=== PATIENT | female | born 1945 | race Caucasian/White ===

== ENCOUNTER 2019-07-07 19:49 | Emergency (ER) | payer MEDICARE, OTHER ==
[2019-07-07] MEDS ORDERED: SODIUM CHLORIDE 0.9% 1,000 ML IV STA ×2 (19:52)
[2019-07-07 19:54] LABS: Glucose,Whole Blood 178 mg/dL (75-99)
--- NOTE | 2019-07-07 19:59 | ED ---
Neuro HPI - General Stated Complaint: Stroke Symptoms Time Seen by Provider: 07/07/19 19:51 Source: RN notes reviewed, old records reviewed Limitations: altered mental status - History of Present Illness Is the patient presenting with stroke symptoms?: Yes Last Known Well Date: 07/07/19 Last Known Well Time: 19:30 -: hour(s) (1) Initial Comments: This is a 74-year-old female history of high blood pressure and diabetes coming in for evaluation of strokelike symptoms EMS called by family she does have significant right arm right leg deficit slurred speech per EMS arrival patient had significant neurological changes posted improvement rel and then returned upon arrival to ER with confusion right-sided deficits, slurred speech patient unable to give accurate history now she does find her speech and has some speech finding episodes Location: speech, dysarthria, right arm, right leg, altered Place: home Severity: moderate Quality: constant Improves With: none Worsens With: none Context: sudden onset Associated Symptoms: weakness Treatments Prior to Arrival: none - Related Data Allergies/Adverse Reactions: Allergies Allergy/AdvReac Type Severity Reaction Status Date / Time No Known Allergies Allergy Verified 07/07/19 20:11 Review of Systems ROS Statement: Those systems with pertinent positive or pertinent negative responses have been documented in the HPI. ROS Other: All systems not noted in ROS Statement are negative. General Exam - General Exam Comments Initial Comments: Significant right-sided deficits both weakness and sensation General appearance: alert, in no apparent distress Head exam: Present: atraumatic, normocephalic, normal inspection Eye exam: Present: normal appearance, PERRL, EOMI. Absent: scleral icterus, conjunctival injection, periorbital swelling ENT exam: Present: normal exam, mucous membranes moist Neck exam: Present: normal inspection. Absent: tenderness, meningismus, lymphadenopathy Respiratory exam: Present: normal lung sounds bilaterally. Absent: respiratory distress, wheezes, rales, rhonchi, stridor Cardiovascular Exam: Present: regular rate, normal rhythm, normal heart sounds. Absent: systolic murmur, diastolic murmur, rubs, gallop, clicks GI/Abdominal exam: Present: soft, normal bowel sounds. Absent: distended, tenderness, guarding, rebound, rigid Extremities exam: Present: normal inspection, full ROM, normal capillary refill. Absent: tenderness, pedal edema, joint swelling, calf tenderness Back exam: Present: normal inspection Neurological exam: Present: alert, oriented X3, CN II-XII intact Psychiatric exam: Present: normal affect, normal mood Skin exam: Present: warm, dry, intact, normal color. Absent: rash Stroke MDM - Lab Data Result diagrams: 07/07/19 20:04 07/07/19 20:04 Lab Results 07/07/19 07/07/19 07/07/19 Range/Units 19:52 20:04 20:04 WBC 11.1 H (3.8-10.6) k/uL RBC 4.17 (3.80-5.40) m/uL Hgb 12.6 (11.4-16.0) gm/dL Hct 37.6 (34.0-46.0) % MCV 90.2 (80.0-100.0) fL MCH 30.2 (25.0-35.0) pg MCHC 33.5 (31.0-37.0) g/dL RDW 12.4 (11.5-15.5) % Plt Count 261 (150-450) k/uL Neutrophils % 70 % Lymphocytes % 17 % Monocytes % 5 % Eosinophils % 3 % Basophils % 3 % Neutrophils # 7.8 H (1.3-7.7) k/uL Lymphocytes # 1.9 (1.0-4.8) k/uL Monocytes # 0.6 (0-1.0) k/uL Eosinophils # 0.4 (0-0.7) k/uL Basophils # 0.4 H (0-0.2) k/uL PT (9.0-12.0) sec INR (<1.2) APTT (22.0-30.0) sec Sodium 141 (137-145) mmol/L Potassium 4.8 (3.5-5.1) mmol/L Chloride 108 H (98-107) mmol/L Carbon Dioxide 26 (22-30) mmol/L Anion Gap 7 mmol/L BUN 41 H (7-17) mg/dL Creatinine 1.44 H (0.52-1.04) mg/dL Est GFR (CKD-EPI)AfAm 41 (>60 ml/min/1.73 sqM) Est GFR (CKD-EPI)NonAf 36 (>60 ml/min/1.73 sqM) Glucose 178 H (74-99) mg/dL POC Glucose (mg/dL) 178 H (75-99) mg/dL POC Glu [employer] ID Lakia Murdock Calcium 8.7 (8.4-10.2) mg/dL Total Bilirubin 1.2 (0.2-1.3) mg/dL AST 37 H (14-36) U/L ALT 30 (9-52) U/L Alkaline Phosphatase 62 (38-126) U/L Total Creatine Kinase (30-135) U/L Total Protein 6.7 (6.3-8.2) g/dL Albumin 3.6 (3.5-5.0) g/dL 07/07/19 07/07/19 Range/Units 20:04 20:04 WBC (3.8-10.6) k/uL RBC (3.80-5.40) m/uL Hgb (11.4-16.0) gm/dL Hct (34.0-46.0) % MCV (80.0-100.0) fL MCH (25.0-35.0) pg MCHC (31.0-37.0) g/dL RDW (11.5-15.5) % Plt Count (150-450) k/uL Neutrophils % % Lymphocytes % % Monocytes % % Eosinophils % % Basophils % % Neutrophils # (1.3-7.7) k/uL Lymphocytes # (1.0-4.8) k/uL Monocytes # (0-1.0) k/uL Eosinophils # (0-0.7) k/uL Basophils # (0-0.2) k/uL PT 9.8 (9.0-12.0) sec INR 0.9 (<1.2) APTT 25.9 (22.0-30.0) sec Sodium (137-145) mmol/L Potassium (3.5-5.1) mmol/L Chloride (98-107) mmol/L Carbon Dioxide (22-30) mmol/L Anion Gap mmol/L BUN (7-17) mg/dL Creatinine (0.52-1.04) mg/dL Est GFR (CKD-EPI)AfAm (>60 ml/min/1.73 sqM) Est GFR (CKD-EPI)NonAf (>60 ml/min/1.73 sqM) Glucose (74-99) mg/dL POC Glucose (mg/dL) (75-99) mg/dL POC Glu [employer] Operator ID Calcium (8.4-10.2) mg/dL Total Bilirubin (0.2-1.3) mg/dL AST (14-36) U/L ALT (9-52) U/L Alkaline Phosphatase (38-126) U/L Total Creatine Kinase 63 (30-135) U/L Total Protein (6.3-8.2) g/dL Albumin (3.5-5.0) g/dL - NIH Stroke Scale 1a. Level of Consciousness: (0) alert 1b. LOC Questions: (1) answers 1 question correctly 1c. LOC Commands: (1) performs 1 task correctly 2. Best Gaze: (0) normal 3. Visual: (0) no visual loss 4. Facial Palsy: (0) normal symmetrical movement 5a. Motor Arm Left: (0) no drift 5b. Motor Arm Right: (2) some gravity effort 6a. Motor Leg Left: (0) no drift 6b. Motor Leg Right: (2) some gravity effort 7. Limb Ataxia: (0) absent 8. Sensory: (1) mild/moderate sensory loss 9. Best Language: (1) mild/moderate aphasia 10. Dysarthria: (1) mild/moderate dysarthria 11. Extinction/Inattention: (0) no abnormality - Thrombolytic Inclusion/Exclusion Thrombolytic Inclusion Criteria: Symptom Onset < 4.5 h, NIH Stroke Scale Deficit (7) - Medical Decision Making 74 female to ER for evaluation will transfer [facility] for active CVA with embolus, patient given TPA here in the ER and will be transferred to [facility] - Radiology Data Radiology results: report reviewed (CT brain CTA had not does show left ICA occlusion), image reviewed - EKG Data -: EKG Interpreted by Me (EKG shows normal sinus rhythm rate of 65, PA 140, QRS 70, QTc 432) Course Vital Signs 07/07/19 07/07/19 19:52 20:10 Temperature 98.9 F Pulse Rate 71 66 Respiratory 18 18 Rate Blood Pressure 175/106 183/84 O2 Sat by Pulse 95 100 Oximetry - Reevaluation(s) Reevaluation #1: 07/07/19 20:29 Code stroke page outpatient arrival to ER decision made to give TPA in conjunction with patient as well as on-call neuro intervention 07/07/19 20:32 Patient is not on blood thinners Reevaluation #2: 07/07/19 20:30 Patient to be given TPA here in the ER 07/07/19 20:30 Patient given blood pressure control - Consultations Consultation #1: Spoke with Leila Moraes was agreeable to except transfer Critical Care Time Critical Care Time: Yes Total Critical Care Time: 31 Disposition Clinical Impression: Cerebrovascular accident (CVA) Disposition: OTHER INSTITUTION NOT DEFINED Condition: Critical Is patient prescribed a controlled substance at d/c from ED?: No Referrals: None,Stated [Primary Care Provider] - 1-2 days - Out of Hospital Transfer - Req. Specs Out of Hospital Transfer - Requested Specifics: Other Emergency Center ([facility])
[2019-07-07 20:11] VITALS: RESP 18
[2019-07-07 20:11] LABS: Basophils # (A) 0.4 k/uL (0-0.2); Basophils % (A) 3 %; Eosinophils # (A) 0.4 k/uL (0-0.7); Eosinophils % (A) 3 %; HCT 37.6 % (34.0-46.0); HGB 12.6 gm/dL (11.4-16.0); Lymphocytes # (A) 1.9 k/uL (1.0-4.8); Lymphocytes % (A) 17 %; MCH 30.2 pg (25.0-35.0); MCHC 33.5 g/dL (31.0-37.0); MCV 90.2 fL (80.0-100.0); Mean Platelet Volume 7.4; Monocytes # (A) 0.6 k/uL (0-1.0); Monocytes % (A) 5 %; Neutrophils # (A) 7.8 k/uL (1.3-7.7); Neutrophils % (A) 70 %; Platelet Count 261 k/uL (150-450); RBC 4.17 m/uL (3.80-5.40); RDW 12.4 % (11.5-15.5); WBC 11.1 k/uL (3.8-10.6)
--- NOTE | 2019-07-07 20:13 | CT ---
EXAMINATION TYPE: CT brain wo con for TPA DATE OF EXAM: 07/07/2019 COMPARISON: None HISTORY: Neuro deficit, acute, stroke suspected. CT DLP: 1102.8 mGycm Automated exposure control for dose reduction was used. FINDINGS: There is some cerebral cortical atrophy. There is no mass effect nor midline shift. There is no sign of intracranial hemorrhage. The calvarium is intact. There is some mucosal thickening in the left don e ethmoid sinus. IMPRESSION: CEREBRAL ATROPHY. NO ACUTE INTRACRANIAL ABNORMALITY. MILD ETHMOID SINUSITIS.
[2019-07-07] MEDS ORDERED: LABETALOL 5 MG/ML VIAL MDV IVP STA (20:19)
[2019-07-07 20:21] LABS: INR 0.9 (<1.2); Partial Thromboplastin Time 25.9 sec (22.0-30.0); Prothrombin Time 9.8 sec (9.0-12.0)
[2019-07-07] MEDS ORDERED: Alteplase PER PHARMACY Stroke 1 EACH MISC MISCELLANE PRN (20:23)
[2019-07-07 20:24] LABS: Albumin 3.6 g/dL (3.5-5.0); Calcium 8.7 mg/dL (8.4-10.2); Potassium 4.8 mmol/L (3.5-5.1); Total Bilirubin 1.2 mg/dL (0.2-1.3); Total Protein 6.7 g/dL (6.3-8.2)
[2019-07-07] MEDS ORDERED: ALTEPLASE 81 MG in EMPTY BAG 1 BAG IV STA (20:30)
[2019-07-07] MEDS ORDERED: ALTEPLASE BOLUS 9 MG in EMPTY SYRINGE 1 SYR IV STA (20:30)
[2019-07-07 20:35] LABS: Creatine Kinase MB 0.7 ng/mL (0.0-2.4); Troponin I 0.015 ng/mL (0.000-0.034)
--- NOTE | 2019-07-07 20:42 | CT ---
EXAMINATION TYPE: CT angio head neck DATE OF EXAM: 07/07/2019 HISTORY: Neuro deficit, acute, stroke suspected. COMPARISON: None CT DLP: 525.4 mGycm. Automated Exposure Control for Dose Reduction was Utilized. TECHNIQUE: CTA scan of the neck is performed with IV Contrast, patient injected with 65ml mL of Isov ue 370, axial images are obtained, coronal and sagittal reformatted images are reviewed. Three-D rashad nstructed images are created on an independent workstation and reviewed. FINDINGS: There is normal branching pattern of the great vessels on the aortic arch. There is no sign of aneury sm or dissection of the arch. There is bilateral arterial flow in the subclavian arteries. There is arterial flow in the right side common internal and external carotid artery. On the left side there is subtotal occlusion of the left distal common carotid artery. I see no flow within the left internal carotid artery. There is no flow in the petrous portion of the left internal carotid artery. There is arterial flow in both vertebral arteries. There is arterial flow in the vertebrobasilar beatriz ry system. I see no evidence of right-sided carotid artery stenosis. There is arterial flow in the anterior middle and posterior cerebral arteries. I see no evidence of i ntracranial aneurysm or neovascularity. The left anterior cerebral artery and left middle cerebral ar martin appears to fill through the anterior communicating artery. There is very small posterior communi cating arteries. I see no mass effect. There is no evidence of intracranial aneurysm or neovascularit y. There is normal contrast opacification of the venous sinuses. 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 There is no flow in the left internal carotid artery. There is left side intracranial arterial flow apparently mostly th rough the anterior communicating artery. No evidence of hemodynamic stenosis on the right side caroti d artery.
[2019-07-07 20:56] VITALS: BP 158/82; PULSE 66; TEMP 98.3
[2019-07-07] MEDS ORDERED: ONDANSETRON 4 MG/2 ML VIAL IVP STA (20:58)
[2019-07-07] MEDS ORDERED: SODIUM CHLORIDE 0.9% 50 ML MINI-BAG IV ONE (21:23)
== END 2019-07-07 21:09 | disposition short-term general hospital (02) ==
LOC: EC 19:49
DX: I63.40 Cerebral infarction due to embolism of unspecified cerebral artery (principal); R47.1 Dysarthria and anarthria; G81.91 Hemiplegia, unspecified affecting right dominant side; R29.707 NIHSS score 7
CPT/HCPCS: 36415; 93005; 80053; 82550; 82553; 84484; 85025; 85610; 85730; 70496; 70450; 70498; 99291; 37195; 96374; 96375; 96361 ×2; J2997; J2405; Q9967

== ENCOUNTER 2020-11-14 15:51 | Emergency (ER) | payer MEDICARE, OTHER ==
[2020-11-14 16:15] VITALS: RESP 18; TEMP 98.4
--- NOTE | 2020-11-14 17:49 | CT ---
EXAMINATION TYPE: CT brain sauline wo con DATE OF EXAM: 11/14/2020 COMPARISON: CT brain 07/07/2019 HISTORY: CT DLP: mGycm Automated exposure control for dose reduction was used. Images were obtained of the brain and cervical spine without contrast. There is cerebral cortical atrophy. There is no mass effect nor midline shift. There is no sign of in tracranial hemorrhage. There is 3 x 2 cm hypodensity in the urrutia-white matter left parietal lobe cons istent with an old infarct. There is 3 cm triangular-shaped area of hypodensity in the left posterior frontal lobe consistent with old infarct. The calvarium is intact. There is some mucosal thickening in the left posterior ethmoid sinus. The cervical vertebra have normal alignment. There is no compression fracture. There is anterior mode rate spurring at C4-5. There is posterior endplate spur formation and calcification of the posterior longitudinal ligament at C4 and C5 level. The facet joints are intact. There is no evidence of a frac ture. There is hypertrophic multilevel facet arthropathy. The skull base is intact. There is normal a eration of the mastoid sinuses. IMPRESSION: Cerebral atrophy. There are old infarcts in the left frontal lobe and left parietal lobe which appear new compared to the old CT scan of the brain. There is chronic left posterior ethmoid sinusitis without evidence of bone destruction in similar to old exam. Spondylotic changes in the mid and lower cervical spine without fracture.
[2020-11-14 17:55] VITALS: BP 162/72; PULSE 56
--- NOTE | 2020-11-14 17:55 | CT ---
EXAMINATION TYPE: CT facial bones wo con DATE OF EXAM: 11/14/2020 COMPARISON: None HISTORY: Fall injury x1 day ago CT DLP: 934.6 mGycm Automated exposure control for dose reduction was used. Images obtained from the bottom of the mandible to the top of the frontal sinuses with no contrast. The mandibular ring is intact. Temporomandibular joints are intact. Zygomatic arches appear normal. N loan bone is intact. The orbital margins are intact. The globes are symmetric. There is no evidence of retro-orbital mass. The maxilla is intact. There is 1.5 cm area of mucosal thickening left posterior ethmoid sinus consi stent with sinusitis. No expansion. No bone destruction. This appears unchanged compared to head CT s can 07/07/2019. There is left frontal scalp soft tissue swelling. IMPRESSION: Small left frontal scalp hematoma measures 4 mm in thickness. No fracture. Left side ethmoid chronic sinusitis.
--- NOTE | 2020-11-14 18:02 | XR ---
EXAMINATION TYPE: XR knee 4V RT DATE OF EXAM: 11/14/2020 COMPARISON: NONE HISTORY: Fall. Knee pain. TECHNIQUE: 4 views FINDINGS: There is moderate narrowing of the lateral joint space. There is spurring of the lateral fe moral and tibial condyles. I see no fracture nor dislocation. There is genu valgus deformity. There i s spurring at the patellofemoral joint. 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 No fracture seen.
--- NOTE | 2020-11-14 18:18 | ED ---
Fall HPI - General Chief Complaint: Fall Stated Complaint: Fall/head injury/blood thinners Time Seen by Provider: 11/14/20 16:51 Source: patient, family Mode of arrival: wheelchair - History of Present Illness Initial Comments: Patient is a 75-year-old female presenting to the emergency department after she fell yesterday. Patient states she lost her footing and fell forward landing mostly on her right knee but then hitting the left side of her forehead on the ground. She denies loss of consciousness. She states today she noticed increased bruising around her eyes and her nose as well as increased pain in her right knee. She states her daughter urged her to come to be evaluated. She does take eliquis secondary to a stroke. Denies any previous surgeries of her right knee. She denies any headaches, no blurry vision. She denies pain in any other of her extremities except the right knee. She has no further complaints at this time. Upon arrival to the ER, her vitals are stable. - Related Data Allergies Allergy/AdvReac Type Severity Reaction Status Date / Time No Known Allergies Allergy Verified 11/14/20 16:15 Review of Systems ROS Statement: Those systems with pertinent positive or pertinent negative responses have been documented in the HPI. ROS Other: All systems not noted in ROS Statement are negative. Past Medical History Past Medical History: Atrial Fibrillation, Heart Failure, CVA/TIA, Diabetes Mellitus, Hypertension History of Any Multi-Drug Resistant Organisms: None Reported Past Surgical History: Cholecystectomy Additional Past Surgical History / Comment(s): surgery to remove clot from leg and brain Past Psychological History: No Psychological Hx Reported Smoking Status: Former smoker Past Alcohol Use History: None Reported Past Drug Use History: None Reported General Exam - General Exam Comments Initial Comments: GENERAL: Patient is well-developed and well-nourished. Patient is nontoxic and in no acute distress. HEAD: Patient has small hematoma to the left forehead, there is some mild bruising present, no signs of basal skull fracture. EYES: Pupils equal round and reactive to light, extraocular movements intact, sclera anicteric, conjunctiva are normal. Eyelids were unremarkable. She does have some bruising noted underneath both of her eyes. ENT: TMs normal, nares patent, oropharynx clear without exudates. Moist mucous membranes. She has tenderness to palpation of the nasal bridge and bone, some mild bruising present NECK: Normal range of motion, supple without lymphadenopathy or JVD. LUNGS: Unlabored respirations. Breath sounds clear to auscultation bilaterally and equal. No wheezes rales or rhonchi. HEART: Regular rate and rhythm without murmurs, rubs or gallops. ABDOMEN: Soft, nontender, normoactive bowel sounds. No guarding, no rebound. No masses appreciated. : Deferred MUSCULOSKELETAL: Patient has bruising and pain present of the right anterior knee, she does have full active range of motion. She does have some mild swelling present. She is neurovascular intact. Rest of her extremities are within normal limits. No clubbing or cyanosis. NEUROLOGICAL: Patient is alert and oriented x 3. Motor and sensory are also intact. Cranial nerves II through XII grossly intact. Symmetrical smile. Normal speech, normal gait. PSYCH: Normal mood, normal affect. SKIN: Warm, Dry, normal turgor, no rashes or lesions noted. Limitations: physical limitation Course Vital Signs 11/14/20 11/14/20 16:08 17:51 Temperature 98.4 F Pulse Rate 58 L 56 L Respiratory 18 18 Rate Blood Pressure 185/73 162/72 O2 Sat by Pulse 98 95 Oximetry Medical Decision Making - Medical Decision Making Patient is a 75-year-old female with history of stroke, presenting after she fell yesterday hitting mostly her right knee and her left forehead. No loss of consciousness. She does take eliquis. X-rays show no fractures of the right knee. Computed tomography scan of the brain, C-spine, facial bones reveal no acute bleeding, no acute fractures, old infarcts. She does have a small hematoma left forehead. These findings with the patient. She may apply ice to her bruising and swelling especially to her hematoma on the forehead as well as the right knee. She can follow-up with her family doctor. Patient is stable for discharge. Patient is in agreement with this plan of care. Return parameters were discussed with the patient and they verbalized understanding. Case discussed with Dr. Benítez. Disposition Clinical Impression: Fall Disposition: HOME SELF-CARE Condition: Stable Instructions (If sedation given, give patient instructions): Contusion in Adults (ED) Additional Instructions: Please return to the Emergency Department if symptoms worsen or any other concerns. Apply ice to your bruising for pain and swelling. Recommend following up with your family doctor. Is patient prescribed a controlled substance at d/c from ED?: No Referrals: None,Stated [Primary Care Provider] - 1-2 days Time of Disposition: 18:28
== END 2020-11-14 18:42 | disposition home or self-care (01) ==
LOC: EC 15:51
DX: S09.90XA Unspecified injury of head, initial encounter (principal); I11.0 Hypertensive heart disease with heart failure; I50.9 Heart failure, unspecified; I48.91 Unspecified atrial fibrillation; Z86.73 Personal history of transient ischemic attack (TIA), and cerebral infarction without residual deficits; Z87.891 Personal history of nicotine dependence; W19.XXXA Unspecified fall, initial encounter
CPT/HCPCS: 70450; 70486; 72125; 99284

== ENCOUNTER 2021-07-13 09:07 | Emergency (ER) | payer MEDICARE, OTHER ==
[2021-07-13 09:14] VITALS: RESP 18
--- NOTE | 2021-07-13 09:34 | ED ---
General Adult HPI - General Chief complaint: Extremity Injury, Lower Stated complaint: Lt foot pain Time Seen by Provider: 07/13/21 09:16 Source: patient, family, RN notes reviewed Mode of arrival: wheelchair Limitations: no limitations - History of Present Illness Initial comments: Patient is a pleasant 76-year-old female presenting to the emergency Department with left foot discomfort. Onset of symptoms was close to week ago. Patient did have some dark discoloration that is improving. Patient now over the past day or so has redness on the dorsum of the foot. That is the area of tenderness. No fevers. Patient is ambulatory without difficulty. Discomfort does increase with touch. No history of similar symptoms previously. Discoloration was not the distal area, or the proximal second through fourth toes as well as somewhat of the proximal foot. - Related Data Home Medications Medication Instructions Recorded Confirmed Apixaban [Eliquis] 5 mg PO BID 07/13/21 07/13/21 Aspirin EC [Ecotrin Low Dose] 81 mg PO HS 07/13/21 07/13/21 Calcium Carbonate [Calcium] 600 mg PO DAILY 07/13/21 07/13/21 Cholecalciferol [Vitamin D3 (25 25 mcg PO BID 07/13/21 07/13/21 Mcg = 1000 Iu)] Furosemide [Lasix] 20 mg PO DAILY@1400 07/13/21 07/13/21 Furosemide [Lasix] 40 mg PO DAILY 07/13/21 07/13/21 Grape Seed Extract 1 tab PO HS 07/13/21 07/13/21 Insulin Aspart [NovoLOG Flexpen] See Protocol SQ ACHS 07/13/21 07/13/21 Insulin Detemir [Levemir Flextouch 24 units SQ HS 07/13/21 07/13/21 Pen] Losartan [Cozaar] 50 mg PO HS 07/13/21 07/13/21 Magnesium Oxide [Mag-Ox] 400 mg PO DAILY 07/13/21 07/13/21 Metoprolol Tartrate [Lopressor] 100 mg PO BID 07/13/21 07/13/21 Multivit-Min/Iron/Folic/Lutein 1 tab PO DAILY 07/13/21 07/13/21 [Centrum Silver Women Tablet] [place]-3 Fatty Acids [[place]-3] 1,000 mg PO DAILY 07/13/21 07/13/21 Pantoprazole [Protonix] 40 mg PO DAILY 07/13/21 07/13/21 Potassium Chloride ER [K-Dur 10] 10 meq PO DAILY 07/13/21 07/13/21 Pravastatin Sodium [Pravachol] 80 mg PO HS 07/13/21 07/13/21 Vitamin B Complex 1 cap PO DAILY 07/13/21 07/13/21 Vits A,C,E/Lutein/Minerals 1 tab PO DAILY 07/13/21 07/13/21 [Ocuvite with Lutein Tablet] Previous Rx's Medication Instructions Recorded Clindamycin HCl 300 mg PO Q8H #30 cap 07/13/21 Allergies Allergy/AdvReac Type Severity Reaction Status Date / Time Penicillins Allergy Rash/Hives Verified 07/13/21 10:12 Review of Systems ROS Statement: Those systems with pertinent positive or pertinent negative responses have been documented in the HPI. ROS Other: All systems not noted in ROS Statement are negative. Constitutional: Denies: fever Eyes: Denies: eye pain ENT: Denies: ear pain Respiratory: Denies: cough Cardiovascular: Denies: chest pain Endocrine: Denies: fatigue Gastrointestinal: Denies: abdominal pain Genitourinary: Denies: dysuria Musculoskeletal: Denies: back pain Skin: Reports: as per HPI Neurological: Denies: headache Past Medical History Past Medical History: Atrial Fibrillation, Heart Failure, CVA/TIA, Diabetes Mellitus, Hypertension History of Any Multi-Drug Resistant Organisms: None Reported Past Surgical History: Cholecystectomy Additional Past Surgical History / Comment(s): surgery to remove clot from leg and brain Past Psychological History: No Psychological Hx Reported Smoking Status: Former smoker Past Alcohol Use History: None Reported Past Drug Use History: None Reported General Exam Limitations: no limitations General appearance: alert, in no apparent distress Head exam: Present: normocephalic Eye exam: Present: normal appearance Neck exam: Present: normal inspection Respiratory exam: Present: normal lung sounds bilaterally Cardiovascular Exam: Present: regular rate, normal rhythm Expanded Peripheral pulses: 2+: Posterior Tibialis (R), Posterior Tibialis (L), Dorsalis Pedis (R), Dorsalis Pedis (L) GI/Abdominal exam: Present: soft. Absent: tenderness Extremities exam: Present: other (Left foot with mild swelling. Dorsum with erythema and tenderness. There is mild ecchymosis proximal second through fourth toes as well as proximal foot/ankle region.) Back exam: Present: normal inspection Neurological exam: Present: alert. Absent: motor sensory deficit Psychiatric exam: Present: normal affect, normal mood Skin exam: Present: erythema Course Vital Signs 07/13/21 09:09 Temperature 97.7 F Pulse Rate 109 H Respiratory 18 Rate Blood Pressure 115/43 O2 Sat by Pulse 97 Oximetry Medical Decision Making - Medical Decision Making Patient reevaluated. Patient and family updated - Radiology Data Radiology results: report reviewed (Ultrasound negative for DVT), image reviewed (Foot and (Ankle x-ray shows no acute process) Disposition Clinical Impression: Cellulitis of left foot Disposition: HOME SELF-CARE Condition: Stable Instructions (If sedation given, give patient instructions): Cellulitis (ED) Additional Instructions: Please do follow-up with primary care physician in the next couple days for recheck. Return for increased pain, fever, swelling, color change, worsening or changing symptoms or any other concerns. Prescription has been sent to pharmacy Prescriptions: Clindamycin HCl 300 mg PO Q8H #30 cap Is patient prescribed a controlled substance at d/c from ED?: No Referrals: Chandler Gleason MD [Primary Care Provider] - 1-2 days Sagar Zhang MD [Family Provider] - 1-2 days Time of Disposition: 11:06
--- NOTE | 2021-07-13 09:59 | US ---
EXAMINATION TYPE: US venous doppler duplex LE LT DATE OF EXAM: 07/13/2021 9:54 AM COMPARISON: NONE CLINICAL HISTORY: pain, swelling. SIDE PERFORMED: Left TECHNIQUE: The lower extremity deep venous system is examined utilizing real time linear array sonog keyonna with graded compression, doppler sonography and color-flow sonography. VESSELS IMAGED: Common Femoral Vein Deep Femoral Vein Greater Saphenous Vein * Femoral Vein Popliteal Vein Small Saphenous Vein * Proximal Calf Veins (* superficial vessels) Left Leg: Negative for DVT Grayscale, color doppler, spectral doppler imaging performed of the deep veins of the left lower extr emity. There is normal flow, compressibility, vascular waveforms. IMPRESSION: No ultrasound evidence for acute DVT in the left lower extremity.
--- NOTE | 2021-07-13 10:31 | XR ---
EXAMINATION TYPE: XR ankle complete LT, XR foot complete LT DATE OF EXAM: 07/13/2021 CLINICAL HISTORY: Pain and swelling. TECHNIQUE: Frontal, lateral and oblique images of the left ankle and foot are obtained. COMPARISON: None. FINDINGS: [place] osseous structures are demineralized. Mild to moderate diffuse soft tissue swelling greatest over the lateral malleolus. There is no acute fracture/dislocation evident in the left ankl e. The ankle mortise appears within normal limits. Large superior and inferior calcaneal spurs.Poste rior arterial vascular calcification. There is no acute fracture or dislocation evident in the left foot. Moderate midfoot spurring. Marke d flexion in the second through fifth toes are hammertoe type deformity. Mild to moderate narrowing a nd spurring first metatarsophalangeal joint. Overlying soft tissue is unremarkable. IMPRESSION: As above.
[2021-07-13] MEDS ORDERED: CLINDAMYCIN 150 MG CAP PO STA (11:08)
[2021-07-13 11:31] VITALS: BP 124/78; PULSE 80; TEMP 98
== END 2021-07-13 11:31 | disposition home or self-care (01) ==
LOC: EC 09:07
DX: L03.116 Cellulitis of left lower limb (principal); I11.0 Hypertensive heart disease with heart failure; I50.9 Heart failure, unspecified; E11.9 Type 2 diabetes mellitus without complications; I48.91 Unspecified atrial fibrillation; Z79.01 Long term (current) use of anticoagulants; Z79.82 Long term (current) use of aspirin; Z79.4 Long term (current) use of insulin; Z88.0 Allergy status to penicillin; Z86.73 Personal history of transient ischemic attack (TIA), and cerebral infarction without residual deficits; Z90.49 Acquired absence of other specified parts of digestive tract; Z87.891 Personal history of nicotine dependence
CPT/HCPCS: 99284

== ENCOUNTER 2023-04-26 05:57 | Emergency (ER) | payer MEDICARE, OTHER ==
[2023-04-26 06:09] VITALS: PULSE 96; RESP 20; TEMP 97.8
--- NOTE | 2023-04-26 06:22 | ED ---
General Adult HPI - General Chief complaint: Vaginal Bleeding Stated complaint: Blood in toilet Time Seen by Provider: 04/26/23 06:13 Source: family, RN notes reviewed Mode of arrival: wheelchair Limitations: no limitations - History of Present Illness Initial comments: 78-year-old female with past medical history significant for CVA and hypertension presents emergency department with a chief complaint of vaginal bleeding. Patient reports that she is postmenopausal last menstrual period approximately 30 years ago. She reports intermittent light vaginal bleeding for the last 3 days. She does report passing small clots. She denies dizziness, lightheadedness, shortness of breath, fatigue. She is on Eliquis for anticoagulation. - Related Data Home Medications Medication Instructions Recorded Confirmed Apixaban [Eliquis] 5 mg PO BID 07/13/21 07/13/21 Aspirin EC [Ecotrin Low Dose] 81 mg PO HS 07/13/21 07/13/21 Calcium Carbonate [Calcium] 600 mg PO DAILY 07/13/21 07/13/21 Cholecalciferol [Vitamin D3 (25 25 mcg PO BID 07/13/21 07/13/21 Mcg = 1000 Iu)] Furosemide [Lasix] 20 mg PO DAILY@1400 07/13/21 07/13/21 Furosemide [Lasix] 40 mg PO DAILY 07/13/21 07/13/21 Grape Seed Extract 1 tab PO HS 07/13/21 07/13/21 Insulin Aspart [NovoLOG Flexpen] See Protocol SQ ACHS 07/13/21 07/13/21 Insulin Detemir [Levemir Flextouch 24 units SQ HS 07/13/21 07/13/21 Pen] Losartan [Cozaar] 50 mg PO HS 07/13/21 07/13/21 Magnesium Oxide [Mag-Ox] 400 mg PO DAILY 07/13/21 07/13/21 Metoprolol Tartrate [Lopressor] 100 mg PO BID 07/13/21 07/13/21 Multivit-Min/Iron/Folic/Lutein 1 tab PO DAILY 07/13/21 07/13/21 [Centrum Silver Women Tablet] [place]-3 Fatty Acids [[place]-3] 1,000 mg PO DAILY 07/13/21 07/13/21 Pantoprazole [Protonix] 40 mg PO DAILY 07/13/21 07/13/21 Potassium Chloride ER [K-Dur 10] 10 meq PO DAILY 07/13/21 07/13/21 Pravastatin Sodium [Pravachol] 80 mg PO HS 07/13/21 07/13/21 Vitamin B Complex 1 cap PO DAILY 07/13/21 07/13/21 Vits A,C,E/Lutein/Minerals 1 tab PO DAILY 07/13/21 07/13/21 [Ocuvite with Lutein Tablet] Previous Rx's Medication Instructions Recorded clindamycin HCL [Clindamycin HCl] 300 mg PO Q8H #30 cap 07/13/21 Cephalexin [Keflex] 500 mg PO BID #14 cap 04/26/23 Allergies Allergy/AdvReac Type Severity Reaction Status Date / Time irbesartan Allergy Rash/Hives Verified 04/26/23 06:13 Penicillins Allergy Rash/Hives Verified 04/26/23 06:08 [id number]-[id number]-[id number] Reductase Allergy Rash/Hives Verified 04/26/23 06:13 Inhibitor sulfamethoxazole Allergy Rash/Hives Verified 04/26/23 06:13 [From Bactrim] trimethoprim [From Bactrim] Allergy Rash/Hives Verified 04/26/23 06:13 Review of Systems ROS Statement: Those systems with pertinent positive or pertinent negative responses have been documented in the HPI. ROS Other: All systems not noted in ROS Statement are negative. Past Medical History Past Medical History: Atrial Fibrillation, Heart Failure, CVA/TIA, Diabetes Mellitus, Hypertension Additional Past Medical History / Comment(s): Kidney failure History of Any Multi-Drug Resistant Organisms: None Reported Past Surgical History: Cholecystectomy Additional Past Surgical History / Comment(s): surgery to remove clot from leg and brain Past Psychological History: No Psychological Hx Reported Smoking Status: Second hand smoke exposure Past Alcohol Use History: None Reported Past Drug Use History: None Reported General Exam - General Exam Comments Initial Comments: General: Alert, in no acute distress Head: atraumatic normocephalic. Eyes PERRL, EOMI intact, mucous membranes moist Respiratory: Lungs clear to auscultation bilaterally Cardiovascular: Heart rate regular rate and rhythm Abdominal: Soft without guarding or rebound Extremities: Normal inspection with full range of motion and normal capillary refill Neuroogic: alert and oriented 3, CN II-XII intact, able to ambulate with steady gait Skin: warm dry and intact with normal color : external exam is without any rashes, lesions, erythema. Vaginal canal without blood. Cervical os is visualized and is closed. There is no cervical motion tenderness for abnormal adnexal tenderness. Pelvic exam performed with Aneta giles RN present. Limitations: no limitations Course Vital Signs 04/26/23 04/26/23 06:05 10:32 Temperature 97.8 F 97.8 F Pulse Rate 96 96 Respiratory 20 20 Rate Blood Pressure 140/86 120/90 O2 Sat by Pulse 99 99 Oximetry Medical Decision Making - Medical Decision Making Was pt. sent in by a medical professional or institution (, WOODY, MANAGER OF REGULATORY AFFAIRS, urgent care, hospital, or usp...) When possible be specific @ -[No] Did you speak to anyone other than the patient for history (EMS, parent, family, police, friend...)? What history was obtained from this source @ -Patients Daughter Did you review nursing and triage notes (agree or disagree)? Why? @ -[I reviewed and agree with nursing and triage notes] Were old charts reviewed (outside hosp., previous admission, EMS record, old EKG, old radiological studies, urgent care reports/EKG's, usp records)? Report findings @ -[No old charts were reviewed] Differential Diagnosis (chest pain, altered mental status, abdominal pain women, abdominal pain men, vaginal bleeding, weakness, fever, dyspnea, syncope, headache, dizziness, GI bleed, back pain, seizure, CVA, palpatations, mental health, musculoskeletal)? @ -[not applicable] EKG interpreted by me (3pts min.). @ -[As above] X-rays interpreted by me (1pt min.). @ -[None done] CT interpreted by me (1pt min.). @ -[None done] U/S interpreted by me (1pt. min.). @ -Ultrasound pelvis does not reveal any gross abnormality What testing was considered but not performed or refused? (CT, X-rays, U/S, labs)? Why? @ -[None] What meds were considered but not given or refused? Why? @ -[None] Did you discuss the management of the patient with other professionals (professionals i.e. WOODY Gan, MANAGER OF REGULATORY AFFAIRS, lab, RT, psych nurse, social sciences lecturer, clinical reimbursement specialist, teacher, toxics program officer, mental health case manager)? Give summary @ -[No] Was smoking cessation discussed for >3mins.? @ -[No] Was critical care preformed (if so, how long)? @ -[No] Were there social determinants of health that impacted care today? How? (Homelessness, low income, unemployed, alcoholism, drug addiction, transportation, low edu. Level, literacy, decrease access to med. care, fci, rehab)? @ -[No] Was there de-escalation of care discussed even if they declined (Discuss DNR or withdrawal of care, Hospice)? DNR status @ -[No] What co-morbidities impacted this encounter? (DM, HTN, Smoking, COPD, CAD, Cancer, CVA, ARF, Chemo, Hep., AIDS, mental health diagnosis, sleep apnea, morbid obesity)? @ -[None] Was patient admitted / discharged? Hospital course, mention meds given and route, prescriptions, significant lab abnormalities, going to OR and other pertinent info. @ -78-year-old female with no significant past medical history presents the emergency department with vaginal bleeding.. Patient is a thorough history and physical exam performed. Vital signs stable. Heart rate regular rate and rhythm. exam does not reveal any blood in the vaginal vault. Cervical os closed. Patient had lab work obtained which was unremarkable. Urinalysis reveals Large amount of blood, positive nitrates, large leukocyte Estrace, 157 WBCs. Urine Culture pending. Discussed the results in detail with the patient and the patient's family member who verbalized understanding all questions were addressed. She'll provided prescription for Keflex. Recommend close follow-up with her PCP in 3-5 days. Case discussed with FIDEL Mosquera who agrees with plan Undiagnosed new problem with uncertain prognosis? @ -[No] Drug Therapy requiring intensive monitoring for toxicity (Heparin, Nitro, Insulin, Cardizem)? @ -[No] Were any procedures done? @ -[No] Diagnosis/symptom? @ -Vaginal Bleeding - Urinary Tract Infection Acute, or Chronic, or Acute on Chronic? @ -Acute Uncomplicated (without systemic symptoms) or Complicated (systemic symptoms)? @ -Uncomplicated Side effects of treatment? @ -[No] Exacerbation, Progression, or Severe Exacerbation? @ -[No] Poses a threat to life or bodily function? How? (Chest pain, [place], [place], pneumonia, PE, COPD, DKA, ARF, appy, cholecystitis, CVA, Diverticulitis, Homicidal, Suicidal, threat to staff... and all critical care pts) @ -Low likelihood - Lab Data Result diagrams: 04/26/23 06:15 04/26/23 06:15 Lab Results 04/26/23 04/26/23 04/26/23 Range/Units 06:15 06:15 06:15 WBC 9.6 (3.8-10.6) k/uL RBC 4.59 (3.80-5.40) m/uL Hgb 13.8 (11.4-16.0) gm/dL Hct 43.0 (34.0-46.0) % MCV 93.8 (80.0-100.0) fL MCH 30.2 (25.0-35.0) pg MCHC 32.2 (31.0-37.0) g/dL RDW 13.2 (11.5-15.5) % Plt Count 268 (150-450) k/uL MPV 8.6 Neutrophils % 67 % Lymphocytes % 20 % Monocytes % 7 % Eosinophils % 3 % Basophils % 0 % Neutrophils # 6.4 (1.3-7.7) k/uL Lymphocytes # 2.0 (1.0-4.8) k/uL Monocytes # 0.7 (0-1.0) k/uL Eosinophils # 0.3 (0-0.7) k/uL Basophils # 0.0 (0-0.2) k/uL PT (9.0-12.0) sec INR (<1.2) APTT (22.0-30.0) sec Sodium 142 (137-145) mmol/L Potassium 4.2 (3.5-5.1) mmol/L Chloride 105 (98-107) mmol/L Carbon Dioxide 33 H (22-30) mmol/L Anion Gap 4 mmol/L BUN 39 H (7-17) mg/dL Creatinine 1.61 H (0.52-1.04) mg/dL Est GFR (CKD-EPI)AfAm 35 (>60 ml/min/1.73 sqM) Est GFR (CKD-EPI)NonAf 30 (>60 ml/min/1.73 sqM) Glucose 113 H (74-99) mg/dL Calcium 9.2 (8.4-10.2) mg/dL Total Bilirubin 1.2 (0.2-1.3) mg/dL AST 31 (14-36) U/L ALT 22 (4-34) U/L Alkaline Phosphatase 86 (38-126) U/L Total Protein 7.2 (6.3-8.2) g/dL Albumin 3.9 (3.5-5.0) g/dL Urine Color Urine Appearance (Clear) Urine pH (5.0-8.0) Ur Specific [place] (1.001-1.035) Urine Protein (Negative) Urine Glucose (UA) (Negative) Urine Ketones (Negative) Urine Blood (Negative) Urine Nitrite (Negative) Urine Bilirubin (Negative) Urine Urobilinogen (<2.0) mg/dL Ur Leukocyte Esterase (Negative) Urine RBC (0-5) /hpf Urine WBC (0-5) /hpf Ur Squamous Epith Cells (0-4) /hpf Urine Bacteria (None) /hpf Urine Mucus (None) /hpf Blood Type A Positive Blood Type Confirm Blood Type Recheck No Previous Record Bld Type Recheck Status CABO Indicated Antibody Screen NEGATIVE Spec Expiration Date 04/29/2023231404/26/23 04/26/23 04/26/23 Range/Units 06:20 09:00 09:10 WBC (3.8-10.6) k/uL RBC (3.80-5.40) m/uL Hgb (11.4-16.0) gm/dL Hct (34.0-46.0) % MCV (80.0-100.0) fL MCH (25.0-35.0) pg MCHC (31.0-37.0) g/dL RDW (11.5-15.5) % Plt Count (150-450) k/uL MPV Neutrophils % % Lymphocytes % % Monocytes % % Eosinophils % % Basophils % % Neutrophils # (1.3-7.7) k/uL Lymphocytes # (1.0-4.8) k/uL Monocytes # (0-1.0) k/uL Eosinophils # (0-0.7) k/uL Basophils # (0-0.2) k/uL PT 11.0 (9.0-12.0) sec INR 1.1 (<1.2) APTT 26.9 (22.0-30.0) sec Sodium (137-145) mmol/L Potassium (3.5-5.1) mmol/L Chloride (98-107) mmol/L Carbon Dioxide (22-30) mmol/L Anion Gap mmol/L BUN (7-17) mg/dL Creatinine (0.52-1.04) mg/dL Est GFR (CKD-EPI)AfAm (>60 ml/min/1.73 sqM) Est GFR (CKD-EPI)NonAf (>60 ml/min/1.73 sqM) Glucose (74-99) mg/dL Calcium (8.4-10.2) mg/dL Total Bilirubin (0.2-1.3) mg/dL AST (14-36) U/L ALT (4-34) U/L Alkaline Phosphatase (38-126) U/L Total Protein (6.3-8.2) g/dL Albumin (3.5-5.0) g/dL Urine Color Yellow Urine Appearance Cloudy H (Clear) Urine pH 5.5 (5.0-8.0) Ur Specific [place] 1.017 (1.001-1.035) Urine Protein 1+ H (Negative) Urine Glucose (UA) Negative (Negative) Urine Ketones Negative (Negative) Urine Blood Large H (Negative) Urine Nitrite Positive H (Negative) Urine Bilirubin Negative (Negative) Urine Urobilinogen <2.0 (<2.0) mg/dL Ur Leukocyte Esterase Large H (Negative) Urine RBC 23 H (0-5) /hpf Urine WBC 157 H (0-5) /hpf Ur Squamous Epith Cells 4 (0-4) /hpf Urine Bacteria Many H (None) /hpf Urine Mucus Rare H (None) /hpf Blood Type Blood Type Confirm A Positive Blood Type Recheck Bld Type Recheck Status Antibody Screen Spec Expiration Date Disposition Clinical Impression: Vaginal bleeding, Urinary tract infection Disposition: HOME SELF-CARE Condition: Stable Instructions (If sedation given, give patient instructions): Urinary Tract Infection in Women (ED) Additional Instructions: [place] return to the nearest emergency department if worsening vaginal bleeding Please return if dizziness, lightheadedness, worsening fatigue develop Follow up with [facility] Prescriptions: Cephalexin [Keflex] 500 mg PO BID #14 cap Is patient prescribed a controlled substance at d/c from ED?: No Referrals: Chandler Gleason MD [Primary Care Provider] - 1-2 days More Araujo MD [STAFF PHYSICIAN] - 1-2 days Sonam Davila DO [Doctor of Osteopathic Medicine] - 1-2 days Salome Flores DO [Doctor of Osteopathic Medicine] - 1-2 days Forms: Area PCPs Time of Disposition: 09:24
[2023-04-26 06:40] LABS: Basophils % (A) 0 %; Eosinophils # (A) 0.3 k/uL (0-0.7); Eosinophils % (A) 3 %; HGB 13.8 gm/dL (11.4-16.0); Lymphocytes % (A) 20 %; MCH 30.2 pg (25.0-35.0); MCHC 32.2 g/dL (31.0-37.0); MCV 93.8 fL (80.0-100.0); Mean Platelet Volume 8.6; Monocytes # (A) 0.7 k/uL (0-1.0); Monocytes % (A) 7 %; Neutrophils # (A) 6.4 k/uL (1.3-7.7); Neutrophils % (A) 67 %; Platelet Count 268 k/uL (150-450); RBC 4.59 m/uL (3.80-5.40); RDW 13.2 % (11.5-15.5); WBC 9.6 k/uL (3.8-10.6)
[2023-04-26 06:48] LABS: ALT 22 U/L (4-34); AST 31 U/L (14-36); African American GFR (CKD) 35 (>60 ml/min/1.73 sqM); Albumin 3.9 g/dL (3.5-5.0); Alkaline Phosphatase 86 U/L (38-126); Anion Gap 4 mmol/L; Blood Urea Nitrogen 39 mg/dL (7-17); Calcium 9.2 mg/dL (8.4-10.2); Carbon Dioxide 33 mmol/L (22-30); Chloride 105 mmol/L (98-107); Glucose 113 mg/dL (74-99); Non-African American GFR(CKD) 30 (>60 ml/min/1.73 sqM); Potassium 4.2 mmol/L (3.5-5.1); Sodium 142 mmol/L (137-145); Total Bilirubin 1.2 mg/dL (0.2-1.3); Total Protein 7.2 g/dL (6.3-8.2)
[2023-04-26] MEDS ORDERED: SODIUM CHLORIDE 0.9% 1,000 ML IV STA (07:28)
--- NOTE | 2023-04-26 08:00 | US ---
EXAMINATION TYPE: US pelvis complete transvag DATE OF EXAM: 04/26/2023 COMPARISON: NONE CLINICAL INDICATION: Female, 78 years old with history of post menopausal bleeding; TECHNIQUE: Transvaginal (TV) and Transabdominal (TA) . Transabdominal sonographic images of the pel vis were acquired. Transvaginal sonographic images were medically necessary to better assess the fol lowing anatomy: Date of LMP: postmenopausal, no HRT. EXAM MEASUREMENTS: Uterus: 7.8 x 4.6 x 4.4 cm Endometrial Stripe: 0.3 cm Right Ovary: not identified Left Ovary: not identified 1. Uterus: Anteverted wnl 2. Endometrium: wnl 3. Right Ovary: not identified 4. Left Ovary: not identified 5. Bilateral Adnexa: wnl 6. Posterior cul-de-sac: wnl IMPRESSION: 1. Pelvic ultrasound as visualized. 2. There is limitation of visualization of the ovaries.
[2023-04-26 09:23] LABS: Appearance,Urine Cloudy (Clear); Bacteria,Urine Many /hpf; Bilirubin,Urine Negative (Negative); Blood,Urine Large (Negative); Color,Urine Yellow; Glucose,Urine (UA) Negative (Negative); Ketones,Urine Negative (Negative); Leukocyte Esterase,Urine Large (Negative); Mucus,Urine Rare /hpf; Nitrite,Urine Positive (Negative); PH, Urine 5.5 (5.0-8.0); Protein,Urine 1+ (Negative); RBC,Urine 23 /hpf (0-5); Specific Gravity,Urine 1.017 (1.001-1.035); Squamous Epithelial Cell,Urine 4 /hpf (0-4); Urobilinogen,Urine <2.0 mg/dL (<2.0); WBC,Urine 157 /hpf (0-5)
[2023-04-26 09:26] LABS: INR 1.1 (<1.2); Partial Thromboplastin Time 26.9 sec (22.0-30.0)
[2023-04-26 10:33] VITALS: BP 120/90
== END 2023-04-26 10:33 | disposition home or self-care (01) ==
LOC: EC 05:57
DX: N39.0 Urinary tract infection, site not specified (principal); N93.9 Abnormal uterine and vaginal bleeding, unspecified; I48.91 Unspecified atrial fibrillation; I11.0 Hypertensive heart disease with heart failure; I50.9 Heart failure, unspecified; E11.9 Type 2 diabetes mellitus without complications; Z86.73 Personal history of transient ischemic attack (TIA), and cerebral infarction without residual deficits; Z79.899 Other long term (current) drug therapy; Z79.01 Long term (current) use of anticoagulants; Z77.22 Contact with and (suspected) exposure to environmental tobacco smoke (acute) (chronic); Z88.0 Allergy status to penicillin; Z88.2 Allergy status to sulfonamides; Z88.6 Allergy status to analgesic agent; Z88.1 Allergy status to other antibiotic agents; Z88.8 Allergy status to other drugs, medicaments and biological substances
CPT/HCPCS: 36415; 76830; 76856; 80053; 81001; 85025; 85610; 85730; 86850; 86900; 86901; 87077; 87086; 87186; 96360; 99284

== ENCOUNTER 2024-07-03 10:24 | Emergency (ER) | payer MEDICARE, OTHER ==
[2024-07-03 11:01] LABS: Glucose,Whole Blood 184 mg/dL (70-110)
--- NOTE | 2024-07-03 11:50 | XR ---
EXAMINATION TYPE: XR humerus RT DATE OF EXAM: 07/03/2024 11:44 AM COMPARISON: None. CLINICAL INDICATION: Female, 79 years old with history of pain, TECHNIQUE: 2 view(s) obtained. FINDINGS: Right humerus is examined in 2 views. Humeral head articulates glenoid. The elbow joint space appears intact. No acute fractures or dislocations evident. Follow up exams can be performed 7-10 days from acute trauma for continued pain. IMPRESSION: 1. No acute osseous abnormality right [facility], , 07/03/2024 11:47 AM
--- NOTE | 2024-07-03 11:52 | XR ---
EXAMINATION TYPE: XR knee complete RT DATE OF EXAM: 07/03/2024 11:44 AM COMPARISON: 11/14/2020 CLINICAL INDICATION: Female, 79 years old with history of pain, soreness TECHNIQUE: 3 view(s) obtained. FINDINGS: There is loss of lateral compartment joint space. Mild narrowing of medial compartment joint space pr esent. Lateral tibial plateau spurring is present. No joint effusion is evident. Patellofemoral joint space narrowing is present. Anterior patellar spurring is present superiorly and inferiorly. Vascula r calcifications present. IMPRESSION: 1. 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 2. Mild degenerative changes medial compartment and moderate degenerative changes patellofemoral join t space. [facility], , 07/03/2024 11:50 AM
--- NOTE | 2024-07-03 12:47 | US ---
EXAMINATION TYPE: US extremity nonvasc mass RT DATE OF EXAM: 07/03/2024 COMPARISON: NONE CLINICAL INDICATION: Female, 79 years old with history of pain; Pain when wiping yesterday - lump for m not long after pain TECHNIQUE: FINDINGS: Muscle tear vs detachment from ligament Unable to find bicep tendon ending. Rounded upper end of bicep muscle seen 10.5 cm from humeral head and about 4.5 cm from potential anat p tendon end IMPRESSION: Findings compatible with tendon rupture and retraction biceps muscle. MRI can further ev aluate tendon location [facility], , 07/03/2024 12:44 PM
--- NOTE | 2024-07-03 12:51 | ED ---
General Adult HPI - General Chief complaint: Extremity Injury, Upper Stated complaint: Right arm injury Time Seen by Provider: 07/03/24 10:38 Source: patient, RN notes reviewed Mode of arrival: wheelchair Limitations: no limitations - History of Present Illness Initial comments: 79-year-old female presents to the emergency department for evaluation of right arm pain. Patient states that she was on the toilet and attempted to wipe when she felt tightness in her right arm. She said since then she has noticed a "mass "in her right upper arm. She notes sharp pain in the region of this. She also notes some decreased strength in her right arm. She is able to move it without limitation. Patient also complaining of pain in her right knee. She denies recent fever, chills. She is on blood thinners. - Related Data Home Medications Medication Instructions Recorded Confirmed Apixaban [Eliquis] 5 mg PO BID 07/13/21 07/13/21 Aspirin EC [Ecotrin Low Dose] 81 mg PO HS 07/13/21 07/13/21 Calcium Carbonate [Calcium] 600 mg PO DAILY 07/13/21 07/13/21 Cholecalciferol [Vitamin D3 (25 25 mcg PO BID 07/13/21 07/13/21 Mcg = 1000 Iu)] Furosemide [Lasix] 20 mg PO DAILY@1400 07/13/21 07/13/21 Furosemide [Lasix] 40 mg PO DAILY 07/13/21 07/13/21 Grape Seed Extract 1 tab PO HS 07/13/21 07/13/21 Insulin Aspart [NovoLOG Flexpen] See Protocol SQ ACHS 07/13/21 07/13/21 Insulin Detemir [Levemir Flextouch 24 units SQ HS 07/13/21 07/13/21 Pen] Losartan [Cozaar] 50 mg PO HS 07/13/21 07/13/21 Magnesium Oxide [Mag-Ox] 400 mg PO DAILY 07/13/21 07/13/21 Metoprolol Tartrate [Lopressor] 100 mg PO BID 07/13/21 07/13/21 Multivit-Min/Iron/Folic/Lutein 1 tab PO DAILY 07/13/21 07/13/21 [Centrum Silver Women Tablet] Th[place]-3 Fatty Acids [Thon[place]-3] 1,000 mg PO DAILY 07/13/21 07/13/21 Pantoprazole [Protonix] 40 mg PO DAILY 07/13/21 07/13/21 Potassium Chloride ER [K-Dur 10] 10 meq PO DAILY 07/13/21 07/13/21 Pravastatin Sodium [Pravachol] 80 mg PO HS 07/13/21 07/13/21 Vitamin B Complex 1 cap PO DAILY 07/13/21 07/13/21 Vits A,C,E/Lutein/Minerals 1 tab PO DAILY 07/13/21 07/13/21 [Ocuvite with Lutein Tablet] Previous Rx's Medication Instructions Recorded clindamycin HCL [Clindamycin HCl] 300 mg PO Q8H #30 cap 07/13/21 Cephalexin [Keflex] 500 mg PO BID #14 cap 04/26/23 Allergies Allergy/AdvReac Type Severity Reaction Status Date / Time irbesartan Allergy Rash/Hives Verified 07/03/24 10:34 Penicillins Allergy Rash/Hives Verified 07/03/24 10:34 [id number] Reductase Allergy Rash/Hives Verified 07/03/24 10:34 Inhibitor sulfamethoxazole Allergy Rash/Hives Verified 07/03/24 10:34 [From Bactrim] trimethoprim [From Bactrim] Allergy Rash/Hives Verified 07/03/24 10:34 Review of Systems ROS Statement: Those systems with pertinent positive or pertinent negative responses have been documented in the HPI. ROS Other: All systems not noted in ROS Statement are negative. Past Medical History Past Medical History: Atrial Fibrillation, Heart Failure, CVA/TIA, Diabetes Mellitus, Hypertension Additional Past Medical History / Comment(s): Kidney failure History of Any Multi-Drug Resistant Organisms: None Reported Past Surgical History: Bladder Surgery, Cholecystectomy Additional Past Surgical History / Comment(s): surgery to remove clot from leg and brain, DNC Past Psychological History: No Psychological Hx Reported Smoking Status: Second hand smoke exposure Past Alcohol Use History: None Reported Past Drug Use History: None Reported General Exam Limitations: no limitations General appearance: alert, in no apparent distress Head exam: Present: atraumatic, normocephalic, normal inspection Eye exam: Present: normal appearance, PERRL, EOMI. Absent: scleral icterus, conjunctival injection, periorbital swelling ENT exam: Present: normal exam, mucous membranes moist Extremities exam: Present: full ROM, tenderness, normal capillary refill, other (Bunching deformity to the right biceps) Neurological exam: Present: alert, oriented X3 Psychiatric exam: Present: normal affect, normal mood Skin exam: Present: warm, dry, intact, normal color. Absent: rash Course Vital Signs 07/03/24 07/03/24 10:27 12:52 Temperature 97.9 F 98.1 F Pulse Rate 86 64 Respiratory 20 18 Rate Blood Pressure 177/102 146/97 O2 Sat by Pulse 99 95 Oximetry Medical Decision Making - Medical Decision Making Was pt. sent in by a medical professional or institution (, PA, BUCKLE INSPECTOR, urgent care, hospital, or [facility]...) When possible be specific @ -No Did you speak to anyone other than the patient for history (EMS, parent, family, police, friend...)? What history was obtained from this source @ -No Did you review nursing and triage notes (agree or disagree)? Why? @ -I reviewed and agree with nursing and triage notes Were old charts reviewed (outside hosp., previous admission, EMS record, old EKG, old radiological studies, urgent care reports/EKG's, [facility] records)? Report findings @ -No old charts were reviewed Differential Diagnosis (chest pain, altered mental status, abdominal pain women, abdominal pain men, vaginal bleeding, weakness, fever, dyspnea, syncope, headache, dizziness, GI bleed, back pain, seizure, CVA, palpatations, mental health, musculoskeletal)? @ -Differential Musculoskeletal Muscular strain, contusion, ligament sprain, fracture, arthritis, septic arthritis, bursitis, cellulitis, muscle spasm, nerve compression, DVT, arterial occlusion, herpes zoster, electrolyte abnormality, tumor.... This is not meant to be in all inclusive list EKG interpreted by me (3pts min.). @ -None X-rays interpreted by me (1pt min.). @ -X-ray of the right humerus shows no acute process X-ray of the right knee shows advanced osteoarthritis CT interpreted by me (1pt min.). @ -None done U/S interpreted by me (1pt. min.). @ -Ultrasound of the right upper extremity shows findings compatible with tendon rupture and retraction of the biceps muscle What testing was considered but not performed or refused? (CT, X-rays, U/S, labs)? Why? @ -None What meds were considered but not given or refused? Why? @ -None Did you discuss the management of the patient with other professionals (professionals i.e. , PA, BUCKLE INSPECTOR, lab, RT, psych nurse, clinical social work aide, airline lounge receptionist, teacher, custom protection officer, protective services case worker)? Give summary @ -No Was smoking cessation discussed for >3mins.? @ -No Was critical care preformed (if so, how long)? @ -No Were there social determinants of health that impacted care today? How? (Homelessness, low income, unemployed, alcoholism, drug addiction, transportation, low edu. Level, literacy, decrease access to med. care, [facility], rehab)? @ -No Was there de-escalation of care discussed even if they declined (Discuss DNR or withdrawal of care, Hospice)? DNR status @ -No What co-morbidities impacted this encounter? (DM, HTN, Smoking, COPD, CAD, Cancer, CVA, ARF, Chemo, Hep., AIDS, mental health diagnosis, sleep apnea, morbid obesity)? @ -None Was patient admitted / discharged? Hospital course, mention meds given and route, prescriptions, significant lab abnormalities, going to OR and other pertinent info. @ -Discharged. Patient presented to the emergency department for evaluation of right upper arm discomfort and "mass" after using the toilet. Patient underwent x-ray of the right humerus which shows no acute process. Ultrasound of the right upper extremity shows findings compatible with a bicep tendon rupture and retraction of the biceps tendon. Patient was placed in a sling. Advised symptomatic treatment at this time. She was provided follow-up information for local orthopedics for her to contact. She is understanding and agreeable with this plan. Patient stable at time of discharge. Case discussed with Dr. Wright. Undiagnosed new problem with uncertain prognosis? @ -No Drug Therapy requiring intensive monitoring for toxicity (Heparin, Nitro, Insulin, Cardizem)? @ -No Were any procedures done? @ -No Diagnosis/symptom? @ -Bicep tendon rupture Acute, or Chronic, or Acute on Chronic? @ -Default Uncomplicated (without systemic symptoms) or Complicated (systemic symptoms)? @ -Default Side effects of treatment? @ -No Exacerbation, Progression, or Severe Exacerbation? @ -No Poses a threat to life or bodily function? How? (Chest pain, [place], [place], pneumonia, PE, COPD, DKA, ARF, appy, cholecystitis, CVA, Diverticulitis, Homicidal, Suicidal, threat to staff... and all critical care pts) @ -No - Lab Data Lab Results 07/03/24 Range/Units 10:59 POC Glucose (mg/dL) 184 H (70-110) mg/dL POC Glu Property Disposal Manager ID Esteban Harris Disposition Clinical Impression: Biceps tendon rupture Disposition: HOME SELF-CARE Condition: Stable Instructions (If sedation given, give patient instructions): Tendon Rupture (ED) Additional Instructions: Please follow up with orthopedics. Return to the emergency department for new or worsening symptoms. Is patient prescribed a controlled substance at d/c from ED?: No Referrals: Chandler Gleason MD [Primary Care Provider] - 1-2 days Aamir Moser DO [Doctor of Osteopathic Medicine] - 1-2 days
[2024-07-03 12:53] VITALS: BP 146/97; PULSE 64; RESP 18; TEMP 98.1
== END 2024-07-03 13:46 | disposition home or self-care (01) ==
LOC: EC 10:24
DX: S46.211A Strain of muscle, fascia and tendon of other parts of biceps, right arm, initial encounter (principal); Z88.0 Allergy status to penicillin; Z88.1 Allergy status to other antibiotic agents; Z88.2 Allergy status to sulfonamides; Z88.8 Allergy status to other drugs, medicaments and biological substances; Z86.73 Personal history of transient ischemic attack (TIA), and cerebral infarction without residual deficits; Z77.22 Contact with and (suspected) exposure to environmental tobacco smoke (acute) (chronic); X58.XXXA Exposure to other specified factors, initial encounter
CPT/HCPCS: 36415; 99284